=== PATIENT | male | born 1965 | race Caucasian/White ===

== ENCOUNTER 2019-05-09 12:56 | Observation (INO) ==
[2019-05-09 13:21] LABS: BASO# 0.06 X1000 (0.0-0.2); BASO% 1.2 % (0.0-0.8); HEMATOCRIT 35.7 % (42.0-52.0); HEMOGLOBIN 11.4 g/dL (14.0-18.0); LYMPH# 1.42 X1000 (1.2-3.4); LYMPH% 28.1 % (20.5-51.1); MCH 27.6 PG (27-31); MCHC 31.9 g/dL (33-37); MCV 86.4 FL (81-99); MONO# 0.57 X1000 (0.11-0.59); MONO% 11.3 % (1.7-9.3); MPV 10.3 FL (7.4-10.4); NEUT% 55.4 % (42.2-75.2); PLT 282 X1000 (130-400); RBC 4.13 XMIL (4.7-6.1); RDW 15.4 % (11.5-14.5); WBC 5.05 X1000 (4.8-10.8)
[2019-05-09 13:45] LABS: AGAP 16; ALBUMIN 4.5 g/dL (3.5-5.0); ALKALINE PHOSPHATASE 95 U/L (32-122); BUN 9 mg/dL (8-22); CALCIUM 9.1 mg/dL (8.8-10.2); CHLORIDE 99 mmol/L (98-107); COSMO 271; CREATININE 1.1 mg/dL (0.7-1.2); ESTIMATED GFR > 60; GLUCOSE 135 mg/dL (70-104); GOT 13 U/L (10-34); GPT 11 U/L (10-44); POTASSIUM 4.3 mmol/L (3.5-5.1); SODIUM 135 mmol/L (136-145); TCO2 21 mmol/L (25-35); TOTAL PROTEIN 6.8 g/dL (6.3-8.3)
--- NOTE | 2019-05-09 14:25 | EKG Report ---
Test Performed on : 05/09/2019 1:16:09 PM Test Reason : epigastric pain Blood Pressure : / mmHG Vent. Rate : 073 BPM Atrial Rate : 073 BPM P-R Int : 146 ms QRS Dur : 082 ms QT Int : 366 ms P-R-T Axes : 026 039 035 degrees QTc Int : 403 ms Normal sinus rhythm. Normal ECG No previous ECGs available Unconfirmed Result
[2019-05-09] MEDS ORDERED: ASPIRIN PO ONE (15:37)
[2019-05-09] MEDS ORDERED: NITROGLYCERIN SL ONE (15:37)
[2019-05-09] MEDS ORDERED: ZOFRAN ODT PO ONE (15:38)
[2019-05-09] MEDS ORDERED: PEPCID PO ONE (15:38)
--- NOTE | 2019-05-09 16:08 | PROVIDER DOCUMENTATION ---
This chart was entered by Mirna Razo Scribe, acting as scribe for Quinten Vega MD. HPI-Abdominal Pain/GI Problem - General Chief Complaint: Epigastric Pain Stated Complaint: N/V/D Time Seen by Provider: 05/09/19 14:17 Source: patient Allergies/Adverse Reactions: Patient Allergies Allergy/AdvReac Type Severity Reaction Status Date / Time Sulfa (Sulfonamide Allergy HIVES Verified 05/09/19 14:36 Antibiotics) Home Medications: Home Medication List Medication Instructions Recorded Confirmed Last Taken Type AMLODIPINE/BENAZEpril [Lotrel 01/28 1 tab PO DAILY 05/09/19 05/09/19 Unknown History mg] Buspirone HCl 15 mg PO BID 05/09/19 05/09/19 Unknown History Cetirizine HCl [Zyrtec] 10 mg PO DAILY 05/09/19 05/09/19 Unknown History Gabapentin 300 mg PO TID 05/09/19 05/09/19 Unknown History Pantoprazole [Protonix] 40 mg PO DAILY@0700 05/09/19 05/09/19 Unknown History Primidone 50 mg PO BID 05/09/19 05/09/19 Unknown History Propranolol HCl 40 mg PO BID 05/09/19 05/09/19 Unknown History Sertraline HCl 100 mg PO DAILY 05/09/19 05/09/19 Unknown History - History of Present Illness-ABD Nature of Presenting Problems: Patient is a 54 year old male who presents with epigastric abdominal pain. States nausea, vomiting, diarrhea, fever and headache with abdominal pain. Reports symptoms have been present for 2 days. Abdominal Pain Onset Location: reports: epigastric Pain Radiation: reports: no radiation Quality of Pain: reports: aching Severity in ED: reports: mild Onset/Duration: reports: 2 days ago Timing: reports: still present Associated Symptoms: reports: diarrhea, fever/chills (fever), headaches, nausea, vomiting Bruising or Bleeding Gums?: No Similar Symptoms Previously?: Yes Recently seen or treated by another doctor?: No Review of Systems - Adult - REVIEW OF SYSTEMS - ADULT Constitutional: reports: see HPI, fever. denies: chills, fatique Eyes: reports: no symptoms reported Ears, Nose, Mouth & Throat: reports: no symptoms reported Cardiovascular: reports: no symptoms reported Respiratory: reports: no symptoms reported Gastrointestinal: reports: see HPI, abdominal pain (epigastric), diarrhea, nausea, vomiting Genitourinary: reports: no symptoms reported Musculoskeletal: reports: no symptoms reported Integumentary: reports: no symptoms reported Neurological: reports: see HPI, headache/migraines (SOMMER). denies: dizziness/vertigo, syncope Psychiatric: reports: no symptoms reported Endocrine: reports: no symptoms reported Hematologic/Lymphatic: reports: no symptoms reported Allergic/Immunologic: reports: no symptoms reported All Other Systems: Reviewed and Negative Past History - Adult - PAST MEDICAL HISTORY-ADULT Review of Records: reports: Old Records Reviewed, Nursing Assessment Review, Medications Reviewed, Social history reviewed & non-contributory. Major Childhood Illnesses: reports: denies history Cardiovascular: reports: HTN Respiratory: reports: denies history Gastrointestinal: reports: denies history Obstetrical/Gynecological: reports: denies history Genitourinary: reports: denies history Musculoskeletal: reports: denies history Neurological: reports: denies history Psychiatric: reports: anxiety Endocrine/Immune: reports: denies history Other Conditions: reports: denies history - PRIOR SURGERIES/PROCEDURES Surgical/Procedure History: reports: orthopedic (extremity) - IMMUNIZATION STATUS Childhood Immunizations: See Nurse Assessment Flu Vaccine: See Nurse Assessment - FAMILY HISTORY Family History: reviewed, not pertinent - SOCIAL HISTORY Smoking: denies Substance Use: alcohol Physical Exam-General - PHYSICAL EXAM-ADULT Initial Vital Signs Reviewed: Yes - CONSTITUTIONAL General Appearance: alert, no apparent distress. negative: lethargic - RESPIRATORY Respiratory: chest non-tender, lungs clear, normal breath sounds. negative: crackles, rales - CARDIOVASCULAR Cardiovascular: normal peripheral pulses, regular rate, rhythm. negative: tachycardia - GASTROINTESTINAL (ABDOMEN) Abdominal Exam: normal bowel sounds, non tender, soft. negative: guarding, rig id - MUSCULOSKELETAL Extremity: non-tender, normal inspection. negative: calf tenderness, deformity, erythema - SKIN Integumentary: normal color, normal turgor, warm/dry. negative: cyanosis, ecchymosis, jaundice, rash - NEUROLOGIC Neurologic: grossly normal. negative: aphasia, facial droop - PSYCHIATRIC Psych/Mental Status: normal mood/affect, oriented x 3. negative: anxious Progress - PLAN OF CARE/RESULTS Progress/Plan/Lab Results: Vital Signs - 8 hr 05/09/19 12:58 Temperature 98.3 F Pulse Rate 85 Respiratory Rate 18 Blood Pressure 112/76 O2 Sat by Pulse Oximetry 97 Laboratory Results - last 24 hr 05/09/19 05/09/19 05/09/19 13:13 13:13 13:13 WBC 5.05 RBC 4.13 L Hgb 11.4 L Hct 35.7 L MCV 86.4 MCH 27.6 MCHC 31.9 L RDW Std Deviation 15.4 H Plt Count 282 MPV 10.3 Immature Gran % (Auto) 0.0 Neut % (Auto) 55.4 Lymph % (Auto) 28.1 [place] % (Auto) 11.3 H Eos % (Auto) 4.0 Baso % (Auto) 1.2 H Immature Gran # (Auto) 0.00 Neut # (Auto) 2.80 Lymph # (Auto) 1.42 [place] # (Auto) 0.57 Eos # (Auto) 0.20 Baso # (Auto) 0.06 Sodium Potassium Chloride Carbon Dioxide Anion Gap BUN Creatinine Estimated GFR/1.73 m2 BUN/Creatinine Ratio Glucose Calculated Osmolality Calcium Total Bilirubin AST ALT Alkaline Phosphatase Creatine Kinase 79 Troponin T < 0.010 Total Protein Albumin Globulin Albumin/Globulin Ratio Lipase 05/09/19 05/09/19 13:13 13:13 WBC RBC Hgb Hct MCV MCH MCHC RDW Std Deviation Plt Count MPV Immature Gran % (Auto) Neut % (Auto) Lymph % (Auto) [place] % (Auto) Eos % (Auto) Baso % (Auto) Immature Gran # (Auto) Neut # (Auto) Lymph # (Auto) [place] # (Auto) Eos # (Auto) Baso # (Auto) Sodium 135 L Potassium 4.3 Chloride 99 Carbon Dioxide 21 L Anion Gap 16 BUN 9 Creatinine 1.1 Estimated GFR/1.73 m2 > 60 BUN/Creatinine Ratio 8 Glucose 135 H Calculated Osmolality 271 Calcium 9.1 Total Bilirubin 0.20 AST 13 ALT 11 Alkaline Phosphatase 95 Creatine Kinase Troponin T Total Protein 6.8 Albumin 4.5 Globulin 2.0 Albumin/Globulin Ratio 2.0 Lipase 56 Orders Category Date Time Status CBC WITH DIFF [HEME] Stat Lab 05/09/19 13:13 Completed CK PROFILE [SP CHEM] Stat Lab 05/09/19 13:13 Completed COMPREHENSIVE METABOLIC PANEL [CHEM] Stat Lab 05/09/19 13:13 Completed LIPASE [CHEM] Stat Lab 05/09/19 13:13 Completed TROPONIN T Stat Lab 05/09/19 13:13 Completed EKG [EKG] Stat Ther 05/09/19 13:04 Draft Result Diagrams: 05/09/19 13:13 05/09/19 13:13 - REASSESSMENT Reassessment #1 Time Reassessed: 15:50 Status: unchanged (still with chest tightness and sl sob.) - EKG 1 Time of EKG reading by physician:: 13:16 EKG Read and Signed by:: Quinten Vega EKG Interpretation (*Must complete 3 of following elements*): Normal Rate: 73 Rhythm: normal sinus rhythm [place]: normal QRS: normal [place] Interval: normal ST Wave: normal Comments: normal ECG - CONSULTS/PCP/HOSPITALIST Notification #1 *Consult/PCP/Hospitalist*: Dr. Mcbride Time Discussed: 15:57 Reason/Comments: Dr. Vega consulted with Dr. Mcbride about patient. Departure - Departure Date of Disposition Decision: 05/09/19 Time of Disposition Decision: 15:57 DIAGNOSIS: Chest pain Disposition: ADMITTED INPATIENT 09 Certified Medical Emergency: Emergent Condition: Stable Referrals and Follow-Ups: Quinten Cardenas [Primary Care Provider] - - Critical Care Note This patient required my direct & personal management of CC.: No Attestation - Physician/ MILTON Attestation The physician spent face to face time with patient:: Yes Advanced Practice Provider documentation review:: Supervising physician onsite and consulted in the evaluation and care of this patient. The physician did have a face to face encounter with the patient. This chart was documented by the indicated scribe, (Mirna Razo Scribe) and accurately reflects the services I performed and decisions made by , Quinten Vega MD, as attested by the provider's signature.
[2019-05-09] MEDS ORDERED: ZOFRAN IV PRN (17:35)
--- NOTE | 2019-05-09 17:48 | HISTORY AND PHYSICAL ---
PRIMARY CARE PHYSICIAN: Dr. Quinten Albright. CHIEF COMPLAINT: Epigastric and substernal chest pain. HISTORY OF PRESENT ILLNESS: This is a 54-year-old male with history of hypertension and neuropathy who presented to the emergency department complaining of epigastric pain, nausea, vomiting, and diarrhea. He reports that the diarrhea started 2 days ago. He had approximately 3- 6 bowel movements per day. He was also vomiting twice today. also reports that he had a temperature 100.0 degrees. Patient today started noticing some substernal chest pain that was like a pressure with no radiation, no aggravating or alleviating factors. This is the first time that he has these kind of problems. He also was complaining of some shortness of breath and coughing some whitish sputum. Finally, the reason why he decided to come to the emergency department was the chest tightness and shortness of breath. He reports that he is feeling less nauseated. Upon ER evaluation the white cell count was okay with normal renal function, normal creatinine, and troponins are normal. So, we were asked to admit this patient for chest pain and diarrhea. PAST MEDICAL HISTORY: 1. Hypertension. 2. Neuropathy. PAST SURGICAL HISTORY: 1. Two back surgeries with residual neuropathy. 2. Left shoulder surgery. ALLERGIES: Patient is allergic to sulfa. SOCIAL HISTORY: The patient drinks between 6 to 7 cans of beer every day to every other day. He denies smoking any cigarettes or using any illicit drugs. Patient lives with . FAMILY HISTORY: Positive for mom with diabetes and dad with chronic kidney disease. REVIEW OF SYSTEMS: Eleven systems were reviewed and all of the symptoms are related H P. PHYSICAL EXAMINATION: VITAL SIGNS: Temperature 98.3 degrees, heart rate 85, respiratory rate 18, blood pressure 112/76, O2 saturation 97% on room air. GENERAL: This is a 54-year-old male, lying in bed, in no acute distress. HEENT: Head is normocephalic, atraumatic. Mucous membranes moist. NECK: No JVD noted. No carotid bruits. No lymphadenopathy. No thyromegaly. CARDIOVASCULAR: S1, S2 heard. No murmurs, gallops, or rubs. Regular rate and rhythm. RESPIRATORY: Clear bilaterally to auscultation. No work of breathing or using accessory muscles. ABDOMEN: Soft. Nontender to palpation. Bowel sounds present. No organomegaly. EXTREMITIES: No clubbing, cyanosis, or edema. Peripheral pulses present in both legs. NEUROLOGICAL: The patient is alert and oriented x3. Moves 4 extremities. LABORATORY DATA: White cell count 5.05, hemoglobin 11.4, hematocrit 35.7, platelets 282,000. Sodium 135. The rest of the BMP is normal. ASSESSMENT: 1. Intractable nausea and vomiting. 2. Chest pain. 3. Hypertension. 4. Neuropathy. PLAN: At this point, patient is being admitted to the hospital for intractable nausea and vomiting. We are going to start IV fluids and Zofran as well. His white cell count is normal. I am going to order an abdominal x-ray. There has not been any type of imaging done on this patient ordered by the ER doctor. Considering this chest pain, we are going to order a CT of the thorax without contrast. We are going to check troponins 3 times. We are going to check an echocardiogram. We are going to do stool studies including C. difficile and white cell count on stool. We will provide IV fluids. We will continue to monitor this patient closely. At this point, because he was having diarrhea, I do not think we are going to restart blood pressure medications yet. We will continue to monitor this patient closely. cc: Andrew Villasenor MD MTDD
--- NOTE | 2019-05-09 18:09 | Diag Imaging Result Doc PS360 ---
ABDOMEN FLAT/UPRIGHT - 05/09/2019 INDICATION: abdominal pain, diarrhea COMPARISON: None FINDINGS: There is a nonobstructive bowel gas pattern. No free air or abdominal calcifications. IMPRESSION: No acute disease. Electronically signed by Dell Monroe 05/09/2019 6:07 PM
[2019-05-09 18:11] LABS: CHOLESTEROL 213 mg/dL (0-200); HDL 59 mg/dL (35-55); LDL 79 mg/dL; TRIGLYCERIDES 375 mg/dL (39-160); VLDL 75 mg/dL
--- NOTE | 2019-05-09 18:18 | Diag Imaging Result Doc PS360 ---
CT THORAX W/O CONTRAST - 05/09/2019 INDICATION: chest pain, cough, wheezing COMPARISON: None FINDINGS: There is a small hiatal hernia. There is no adenopathy. Heart and great vessels are normal. There are calcified granulomas in the left lung and hilum. Upper abdominal images are unremarkable. The lungs and airways are clear. There is an old healing posterior left rib fracture, rib #10. No acute bony lesions. IMPRESSION: No acute disease. This exam was performed using automated exposure control, adjustment of mA or kV according to patient size, and/or use of iterative reconstruction technique Electronically signed by Dell Monroe 05/09/2019 6:16 PM
[2019-05-09] MEDS ORDERED: TYLENOL PO PRN (20:28)
[2019-05-09] MEDS: BUSPAR PO SCH (20:56)
[2019-05-09] MEDS: INDERAL PO SCH (20:56)
[2019-05-09] MEDS: NS 1,000 ML IV SCH (20:57)
[2019-05-09] MEDS: MYSOLINE PO SCH (20:57)
[2019-05-10 04:15] LABS: AGAP 12; BUN 8 mg/dL (8-22); CALCIUM 8.5 mg/dL (8.8-10.2); CHLORIDE 104 mmol/L (98-107); COSMO 277; CREATININE 1.1 mg/dL (0.7-1.2); ESTIMATED GFR > 60; GLUCOSE 93 mg/dL (70-104); POTASSIUM 5.1 mmol/L (3.5-5.1); SODIUM 140 mmol/L (136-145); TCO2 24 mmol/L (25-35)
[2019-05-10 05:03] LABS: BASO# 0.04 X1000 (0.0-0.2); BASO% 0.6 % (0.0-0.8); EOS# 0.22 X1000 (0.0-0.7); EOS% 3.4 % (0.0-10.0); HEMATOCRIT 34.8 % (42.0-52.0); HEMOGLOBIN 10.7 g/dL (14.0-18.0); IMM GRAN# 0.01 X1000 (0.0-0.04); IMM GRAN% 0.2 % (0.0-0.5); LYMPH# 2.75 X1000 (1.2-3.4); LYMPH% 42.2 % (20.5-51.1); MCH 27.3 PG (27-31); MCHC 30.7 g/dL (33-37); MCV 88.8 FL (81-99); MONO# 0.75 X1000 (0.11-0.59); MONO% 11.5 % (1.7-9.3); MPV 10.8 FL (7.4-10.4); NEUT# 2.75 X1000 (1.4-6.5); NEUT% 42.1 % (42.2-75.2); PLT 244 X1000 (130-400); RBC 3.92 XMIL (4.7-6.1); RDW 15.9 % (11.5-14.5); WBC 6.52 X1000 (4.8-10.8)
[2019-05-10] MEDS: NS 1,000 ML IV SCH (06:51)
[2019-05-10 07:57] VITALS: BP 113/74
[2019-05-10] MEDS ORDERED: ZOLOFT PO SCH (09:00)
[2019-05-10] MEDS ORDERED: PRILOSEC PO SCH (09:00)
[2019-05-10] MEDS ORDERED: ZYRTEC PO SCH (09:00)
[2019-05-10] MEDS ORDERED: NEURONTIN PO SCH (09:00)
[2019-05-10] MEDS: INDERAL PO SCH (10:00)
[2019-05-10] MEDS: BUSPAR PO SCH (10:01)
[2019-05-10] MEDS: MYSOLINE PO SCH (10:02)
[2019-05-10 11:20] LABS: C DIFF TOXIN PL NEGATIVE (NEGATIVE)
--- NOTE | 2019-05-10 12:24 | ECHO REPORT ---
ORDER DATE: 05/09/2019 INTERPRETING PHYSICIAN: Tobias Iabrra MD. ECHOCARDIOGRAPHIC MEASUREMENTS: 1. Interventricular septum 0.8. 2. Left ventricular posterior wall 0.8. 3. Diastolic diameter 4.8. 4. Aorta 4.1. 5. Left atrium 4. FINDINGS: 1. Aortic valve leaflets were trileaflet. Pulmonic valve was normal. Mitral valve was normal. Tricuspid valve was normal. There is mild mitral regurgitation, mild tricuspid regurgitation. Peak velocity across the tricuspid valve was 2.8 m/sec. Pulmonary artery systolic pressure 41 mmHg. Peak velocity across the aortic valve less than 2 m/sec. There is no aortic stenosis. There is mild aortic regurgitation. There is mild tricuspid regurgitation. 2. Normal left ventricular cavity size. Estimated ejection fraction of 60%. There is mild diastolic dysfunction. 3. Ascending aorta is mildly dilated. cc: MD Andrew Herndon MD
--- NOTE | 2019-05-10 14:07 | DISCHARGE SUMMARY ---
ADMISSION DATE: 05/09/2019 DISCHARGE DATE: 05/10/2019 DISCHARGE DIAGNOSES: 1. Acute gastroenteritis. 2. Chest pain secondary to gastroesophageal reflux disease. 3. Hypertension. HOSPITAL COURSE: Ms. Hammonds is a 54-year-old gentleman who was admitted to the hospital through the emergency room after reportedly having nausea, vomiting and diarrhea along with chest pain. Apparently, the chest pain was noted to be secondary to acid reflux. His condition has improved within 24 hours with not having any chest pain, nausea, vomiting, or diarrhea anymore. Since his condition has improved, we are going to be discharging him home today. We did check serial troponins here at the hospital and they were found to be negative for any acute myocardial ischemic event. His ECG was also within normal limits. DISCHARGE MEDICATIONS: 1. Aspirin 81 mg orally once daily. 2. Buspirone 50 mg orally twice daily. 3. Cetirizine 10 mg orally once daily. 4. Gabapentin 300 mg orally 3 times a day. 5. Propranolol 40 mg orally twice daily. 6. Sertraline 100 mg orally once daily. 7. Amlodipine/benazepril 5 mg/20 mg orally once daily. 8. Pantoprazole 40 mg orally once daily in the morning. FOLLOWUP: He will follow up with his PCP in approximately 1 week and we will also [facility]. CONDITION: Stable. DISPOSITION: Home. cc: MD Andrew Diaz MD
== END 2019-05-10 13:06 | disposition home or self-care (01) | DRG 392 ==
LOC: P.MEDSURG 12:56 → P.ED 12:56 → SUATTDRO 19:45 → INTOOBSV 19:45 → OBSVTOIN 19:45
PROVIDERS: ADMIT Internal Medicine; ATTEND Internal Medicine